=== PATIENT | female | born 1945 | race Caucasian/White ===

== ENCOUNTER 2021-11-01 12:44 | Inpatient (IN) | payer MEDICARE, OTHER ==
[~2021-11-01] VITALS: Ht 160 cm; Wt 75.4 kg
[2021-11-01 13:38] LABS: INR 1.67 (0.9-1.2); PROTHROMBIN TIME 18.9 SECONDS (11.8-13.4)
[2021-11-01 13:40] LABS: BASOPHIL 0.4 % (0-2); EOSINOPHIL 0.4 % (0-7); HCT 36.8 % (37.0-47.0); HGB 11.6 g/dl (12.5-16.0); MCH 30.3 pg (25.0-31.0); MCHC 31.5 g/dL (32.0-36.0); MCV 96.1 fL (78.0-100.0); MONOCYTE 7.2 % (0-12); MPV 10.3 fL (6.0-9.5); NEUTROPHIL 72.8 % (41-80); NRBC 0; RBC 3.83 M/uL (4.20-5.40); RDW 16.2 % (11.5-14.0); WBC 8.1 K/uL (4.0-10.5)
[2021-11-01 14:01] LABS: CREATININE 1.02 mg/dL (0.51-0.95); POTASSIUM 5.6 mmol/L (3.5-5.1)
[2021-11-01 14:06] LABS: PLT 136 K/uL (150-400)
[2021-11-01 14:37] LABS: CORONAVIRUS 2019 SARS-COV-2 NEGATIVE (NEGATIVE); INFLUENZA A NAA NEGATIVE (NEGATIVE)
[2021-11-01] MEDS ORDERED: NORVASC2.5 MG PO (17:50)
[2021-11-01] MEDS ORDERED: CLONIDINE HCL0.2 MG PO (17:51)
[2021-11-01] MEDS ORDERED: ASPIRIN EC81 MG PO (17:51)
[2021-11-01] MEDS ORDERED: DEPAKOTE SPRIN125 M2 PO ×2 (17:52→17:54)
[2021-11-01] MEDS ORDERED: DITROPAN XL *OUT5 MG PO (17:54)
[2021-11-01] MEDS ORDERED: LINZESS145 MCG PO (17:55)
[2021-11-01] MEDS ORDERED: MELATONIN5 M2 PO (17:56)
[2021-11-01] MEDS ORDERED: TOPROL XL 25MG25 MG PO (17:57)
[2021-11-01] MEDS ORDERED: OMEPRAZOLE 20MG20 MG PO (17:58)
[2021-11-01] MEDS ORDERED: MIRALAX17 GM PO (17:58)
[2021-11-01] MEDS ORDERED: CRESTOR20 M1 PO (18:00)
[2021-11-01] MEDS ORDERED: SENNA-DOCUSATE1 EACH PO (18:01)
[2021-11-01] MEDS ORDERED: ZOLOFT50 MG PO (18:01)
[2021-11-01] MEDS ORDERED: ACETAMINOPHEN500 M1 PO (18:03)
[2021-11-01] MEDS ORDERED: HUMALOG100 UNIT/1 SC (18:06)
[2021-11-01 18:36] LABS: BILIRUBIN NEGATIVE (NEGATIVE); BLOOD 1+ Ery/uL (NEGATIVE); CLARITY CLEAR (CLEAR); COLOR YELLOW (YELLOW); GLUCOSE (U) TRACE mg/dL (NORMAL); LEUKOCYTES NEGATIVE Leu/uL (NEGATIVE); NITRITE NEGATIVE (NEGATIVE); PROTEIN NEGATIVE (NEGATIVE); SPECIFIC GRAVITY >=1.030 (1.001-1.030); UROBILINOGEN 0.2 mg/dL (0.2-1.0)
[2021-11-01 18:45] LABS: BACTERIA TRACE
[2021-11-02 06:45] LABS: BASOPHIL 0.4 % (0-2); EOSINOPHIL 0 % (0-7); HCT 29.6 % (37.0-47.0); HGB 9.3 g/dl (12.5-16.0); LYMPHOCYTE 18.8 % (15-48); MCH 29.9 pg (25.0-31.0); MCHC 31.4 g/dL (32.0-36.0); MCV 95.2 fL (78.0-100.0); MONOCYTE 10.6 % (0-12); MPV 9.4 fL (6.0-9.5); NEUTROPHIL 68.6 % (41-80); NRBC 0; PLT 127 K/uL (150-400); RBC 3.11 M/uL (4.20-5.40); RDW 16.1 % (11.5-14.0)
[2021-11-02 06:55] LABS: ALBUMIN 3.1 g/dL (3.4-5.0); BILIRUBIN - TOTAL 0.5 mg/dL (0.2-1.0); CREATININE 0.85 mg/dL (0.51-0.95); GLOBULIN (CALCULATION) 3.9 g/dL; POTASSIUM 4.8 mmol/L (3.5-5.1)
--- NOTE | 2021-11-02 17:51 | NUR ---
[address] NEWMAN THAT THE PATIENT HAD RETURNED FROM SURGERY AND HAD A LOW B/P 87/54 HR 122. TALKING AND FOLLOWING DIRECTIONS. NO BLEEDING IS NOTED FROM THE INCISION TO THE RIGHT HIP AREA. NEW ORDERS TO PLACED ON TELEMETRY AND CONTINOUS PLUSE OX, INCREASED NORMAL SALINE TO 125ML/HR, GET A CBC AND BMP NOW. AWAITING THE RESULTS.
[2021-11-02 18:43] LABS: HCT 23.9 % (37.0-47.0); HGB 7.5 g/dl (12.5-16.0); MCH 30.9 pg (25.0-31.0); MCHC 31.4 g/dL (32.0-36.0); MCV 98.4 fL (78.0-100.0); MPV 9.4 fL (6.0-9.5); RBC 2.43 M/uL (4.20-5.40); RDW 16.4 % (11.5-14.0); WBC 13.8 K/uL (4.0-10.5)
--- NOTE | 2021-11-02 18:51 | NUR ---
[address] robertson of the results from the CBC, HEM 7.5 NEW ORDERS FOR TO TRANSFUSION 2 UNITS RBC.
[2021-11-02 19:44] LABS: INR 1.44 (0.9-1.2); PROTHROMBIN TIME 16.8 SECONDS (11.8-13.4); PTT 27.8 SECONDS (24.4-34.7)
[2021-11-03 07:40] LABS: BASOPHIL 0.3 % (0-2); EOSINOPHIL 0 % (0-7); HCT 30.6 % (37.0-47.0); LYMPHOCYTE 18.9 % (15-48); MCH 29.2 pg (25.0-31.0); MONOCYTE 9.2 % (0-12); MPV 9.7 fL (6.0-9.5); NRBC 0.4; PLT 106 K/uL (150-400); RBC 3.46 M/uL (4.20-5.40); RDW 16.2 % (11.5-14.0); WBC 11.9 K/uL (4.0-10.5)
[2021-11-03 07:43] LABS: HGB 10.1 g/dl (12.5-16.0); MCV 88.4 fL (78.0-100.0)
[2021-11-03 07:50] LABS: BUN/CREAT RATIO (CALC) 26.2 RATIO; CREATININE 1.03 mg/dL (0.51-0.95); POTASSIUM 4.6 mmol/L (3.5-5.1)
[2021-11-04 06:11] LABS: BASOPHIL 0.1 % (0-2); EOSINOPHIL 0 % (0-7); HCT 20.6 % (37.0-47.0); LYMPHOCYTE 17.8 % (15-48); MCH 29.3 pg (25.0-31.0); MCHC 32.5 g/dL (32.0-36.0); MONOCYTE 8.1 % (0-12); MPV 8.9 fL (6.0-9.5); NEUTROPHIL 72.4 % (41-80); NRBC 0.7; PLT 120 K/uL (150-400); RBC 2.29 M/uL (4.20-5.40); RDW 16.5 % (11.5-14.0); WBC 8.3 K/uL (4.0-10.5)
[2021-11-04 06:15] LABS: HGB 6.7 g/dl (12.5-16.0)
[2021-11-04 06:30] LABS: BUN/CREAT RATIO (CALC) 21.2 RATIO; CREATININE 0.85 mg/dL (0.51-0.95); POTASSIUM 4.6 mmol/L (3.5-5.1)
[2021-11-04 17:12] LABS: HCT 30.3 % (37.0-47.0)
[2021-11-05 06:47] LABS: BASOPHIL 0.3 % (0-2); EOSINOPHIL 0.1 % (0-7); HCT 31.2 % (37.0-47.0); LYMPHOCYTE 19.6 % (15-48); MCH 29.2 pg (25.0-31.0); MCHC 32.4 g/dL (32.0-36.0); MCV 90.2 fL (78.0-100.0); MONOCYTE 9.1 % (0-12); MPV 8.9 fL (6.0-9.5); NEUTROPHIL 68.8 % (41-80); NRBC 0.9; RBC 3.46 M/uL (4.20-5.40); RDW 15.5 % (11.5-14.0); WBC 7.6 K/uL (4.0-10.5)
[2021-11-05 06:55] LABS: HGB 10.1 g/dl (12.5-16.0); PLT 121 K/uL (150-400)
--- NOTE | 2021-11-05 12:17 | NUR ---
11/05/21 Irene Cárdenas, Saulo, reports patient to be on a bed hold. Report given to MS Melody Sood, and Dr. Joseph.
[2021-11-05 15:01] LABS: HCT 31.1 % (37.0-47.0); HGB 10.2 g/dL (12.5-16.0)
[2021-11-05] MEDS ORDERED: NORCO 5-325 TA1 EACH PO (16:35)
[2021-11-05] MEDS ORDERED: XARELTO10 MG PO (17:55)
== END 2021-11-05 18:26 | DRG 481 ==
LOC: FER 12:44 → FMS 15:04
PROVIDERS: Internal Medicine; Legal Medicine; Nurse Practitioner; Nurse Practitioner Family; ADMIT Internal Medicine
PROC: 30233N1 Transfusion of Nonautologous Red Blood Cells into Peripheral Vein, Percutaneous Approach (ICD-10-PCS; 2021-11-02)
PROC: 0QS606Z Reposition Right Upper Femur with Intramedullary Internal Fixation Device, Open Approach (ICD-10-PCS; principal; 2021-11-02 13:30)
PROC: 30233N1 Transfusion of Nonautologous Red Blood Cells into Peripheral Vein, Percutaneous Approach (ICD-10-PCS; 2021-11-03)
PROC: 30233N1 Transfusion of Nonautologous Red Blood Cells into Peripheral Vein, Percutaneous Approach (ICD-10-PCS; 2021-11-04)
DX: M80.051A Age-related osteoporosis with current pathological fracture, right femur, initial encounter for fracture (principal); D62 Acute posthemorrhagic anemia; N30.00 Acute cystitis without hematuria; Z20.822 Contact with and (suspected) exposure to COVID-19; E11.9 Type 2 diabetes mellitus without complications; G30.9 Alzheimer's disease, unspecified; F02.80 Dementia in other diseases classified elsewhere, unspecified severity, without behavioral disturbance, psychotic disturbance, mood disturbance, and anxiety; E78.5 Hyperlipidemia, unspecified; G47.00 Insomnia, unspecified; R56.9 Unspecified convulsions; B96.1 Klebsiella pneumoniae [K. pneumoniae] as the cause of diseases classified elsewhere; I10 Essential (primary) hypertension; Z88.0 Allergy status to penicillin; Z88.5 Allergy status to narcotic agent; Z86.73 Personal history of transient ischemic attack (TIA), and cerebral infarction without residual deficits; Z79.4 Long term (current) use of insulin; Z79.82 Long term (current) use of aspirin; Z79.899 Other long term (current) drug therapy; Z85.038 Personal history of other malignant neoplasm of large intestine; Z90.49 Acquired absence of other specified parts of digestive tract; W06.XXXA Fall from bed, initial encounter
CPT/HCPCS: 36415; 36430; 71045; 73501; 73502; 76000; 80048; 80053; 81001; 82962; 83036; 85014; 85018; 85025; 85610; 85730; 86850; 86900; 86901; 86922; 87076; 87088; 87186; 93005; 94010; 94760; 94762; 96374; 97162; 97167; 97530; 97530-GP; C1713; J1170; J1956; J2405; J2704; J2795; J3010; J3490; J7030; J7040; J7120; P9016; U0002